=== PATIENT | male | born 1945 | race Caucasian/White ===

== ENCOUNTER 2021-05-22 22:53 | Emergency (ER) | payer OTHER ==
[2021-05-22] MEDS ORDERED: guaiFENesin 200 MG/10 ML 10 ML UNIT-DOSE CUPS PO ONE (23:18)
[2021-05-22 23:26] VITALS: BMI 25.5
[2021-05-22 23:29] VITALS: TEMP 98.4
[2021-05-23] MEDS ORDERED: guaiFENesin 200 MG/10 ML 10 ML UNIT-DOSE CUPS ONE (00:16)
[2021-05-23 00:36] LABS: BASO % 0.4 % (0-2.0); EOS % 3.2 % (0-4.5); HEMATOCRIT 39.4 % (35.4-49); HEMOGLOBIN 13.1 GM/dL (11.7-16.9); LYMPH % 17.6 % (8-40); MCH 28.4 pg (25.7-33.7); MCHC 33.3 g/dl (32.0-35.9); MEAN CELL VOLUME 85.1 fl (80-96); MONO % 9.4 % (3.8-10.2); NEUT % 69.4 % (42.8-82.8); PLATELET COUNT 166 10^3/uL (134-434); RBC 4.63 M/mm3 (4.00-5.60); RDW 15.4 % (11.9-15.9)
[2021-05-23 00:54] LABS: CHLORIDE 109 mmol/L (98-107); SODIUM 141 mmol/L (136-145)
[2021-05-23 00:56] LABS: ALBUMIN 3.7 g/dl (3.4-5.0); ANION GAP 4 MMOL/L (8-16); BLOOD UREA NITROGEN 7.1 mg/dL (7-18); CALCIUM 8.6 mg/dL (8.5-10.1); CO2 28 mmol/L (21-32); GLUCOSE,RANDOM 125 mg/dL (74-106); MAGNESIUM 1.9 mg/dL (1.8-2.4)
[2021-05-23 00:59] LABS: SGOT/AST 18 U/L (15-37); SGPT/ALT 41 U/L (13-61)
[2021-05-23 01:01] LABS: ALK PHOS 99 U/L (45-117)
[2021-05-23 01:20] LABS: BILIRUBIN,TOTAL 0.5 mg/dL (0.2-1)
[2021-05-23 05:33] VITALS: BP 139/60; PULSE 74
== END 2021-05-23 06:05 | disposition home or self-care (01) ==
LOC: JER 22:53
DX: R05 Cough (principal)
CPT/HCPCS: 36415; 70450-TC; 71046-TC-FY; 80053; 82550; 82962; 83735; 84484; 85025; 93005; 93010; 99284-25